=== PATIENT | female | born 1955 | race Caucasian/White ===

== ENCOUNTER 2017-04-05 16:23 | Inpatient (IN) | payer MEDICARE ==
[~2017-04-05] VITALS: Ht 160 cm; Wt 67.0 kg
--- NOTE | ~2017-04-05 | DS ---
Unit #: [id number] #: [id number] Patient: BRANDYN BALBUENA [id number] [address] [address] [id number] I MR#: [id number] NAME: BRANDYN BALBUENA. ROOM: 464 Age: 61 Sex: F Admission Date: 04/05/2017 : 1955 Discharge Date: 04/10/2017 Attending Physician: Marshal Kaiser M.D. Primary Care Physician: Esperanza Angel A.P.R.N. DISCHARGE SUMMARY PRIMARY REASON FOR ADMISSION Acute diverticulitis. HISTORY OF PRESENT ILLNESS The patient is a 61-year-old woman who was admitted to the emergency room after having a four day history of left lower quadrant pain. She had some nausea and no diarrhea and no fevers or chills. She has not had any previous such symptoms. CT scan performed, demonstrates diverticulitis with a small amount of extraluminal air, contained small perforation. PHYSICAL EXAMINATION See admission H and P. HOSPITAL COURSE Patient was admitted and started on IV antibiotics. Over the next several days her pain defervesced. Her white count normalized. She was advanced to a regular diet and was deemed ready for discharge home on 04/10/2017. DISPOSITION To home. CONDITION Good. FOLLOWUP Patient will be followed up in the office in two weeks. Dictated by... Anibal CastilloT/ts TD: 04/11/2017 10:29 JOB #: [id number] Unit #: [id number] #: [id number] Patient: BRANDYN BALBUENA DISCHARGE SUMMARY Page 1 of 1 X Marshal Kaiser DISCHARGE SUMMARY
--- NOTE | ~2017-04-05 | CO ---
Unit #: [id number] #: [id number] Patient: BRANDYN BALBUENA [id number] [address] [place], [place] [address] [id number] I MR#: [id number] NAME: BRANDYN BALBUENA. ROOM: 464 Age: 61 Sex: F Admission Date: 04/05/2017 : 1955 Attending Physician: Marshal Kaiser M.D. Primary Care Physician: Esperanza Angel A.P.R.N. Consultation Date: 04/06/2017 CONSULTATION REPORT BRIEF HISTORY The patient is a 61-year-old lady, who presents with 4-day history of left lower quadrant suprapubic abdominal pain. She has had some nausea. No vomiting. No diarrhea. No change in bowel habits. No bright red blood per rectum. No fevers. No chills. No history of similar type pain. No trauma. PAST MEDICAL HISTORY History of hypotension, diabetes, questionable ovarian cancer, arthritis. PAST SURGICAL HISTORY Complex. She has had a hysterectomy, appendectomy, multiple hernia repairs. MEDICATIONS Please see medication list. SOCIAL HISTORY No smoking. No alcohol. REVIEW OF SYSTEMS No cardiopulmonary complaints at this time. Else, 10 systems reviewed and negative. PHYSICAL EXAMINATION GENERAL: She is awake, alert, in no distress. VITAL SIGNS: Currently, afebrile. Pulse 97, respirations 18, blood pressure 137/63. HEENT: Unremarkable. NECK: Supple. No JVD. Trachea midline. LUNGS: Clear to auscultation. Bilateral breath sounds symmetric. CARDIOVASCULAR: Regular rate and rhythm. ABDOMEN: Soft. It is tender in the left lower quadrant. No rebound. No hernias. EXTREMITIES: No clubbing, cyanosis, or edema. DIAGNOSTIC STUDIES LABORATORY RESULTS: Show normal white count. Creatinine is 2.2. IMAGING STUDIES: CT scan referenced, discussed, extraluminal air but minimal inflammation of the sigmoid colon. ASSESSMENT 1. Likely diverticulitis with extraluminal contained perforation. Unit #: [id number] #: [id number] Patient: BRANDYN BALBUENA 2. Possible involvement of the bladder. PLAN Does not seem to have an acute surgical abdomen at this time. Would recommend IV fluids, bowel rest, antibiotics, and we will reassess. We will obtain scans and review. Dictated by... Anibal Ness/raina TD: 04/06/2017 06:57 JOB #: [id number] CONSULTATION REPORT Page 1 of 1 X Jose Prabhakar MD X CONSULTATION REPORT
--- NOTE | ~2017-04-05 | CO ---
Unit #: [id number] #: [id number] Patient: BRANDYN BALBUENA [id number] [address] [place], [place] [address] [id number] I MR#: [id number] NAME: BRANDYN BALBUENA. ROOM: 464 Age: 61 Sex: F Admission Date: 04/05/2017 : 1955 Attending Physician: Marshal Kaiser M.D. Primary Care Physician: Esperanza Angel A.P.R.N. Requesting Physician: Marshal Kaiser M.D. CONSULTATION REPORT REASON FOR CONSULTATION Patient with known history of chronic kidney disease, followed by my partner, Dr. Teresa York, at [place], [place]. HISTORY OF PRESENTING ILLNESS This patient is a 61-year-old white female with a history of multiple problems including type 2 diabetes, history of hypertension, hyperlipidemia, history of osteoporosis, history of GERD, history of peripheral neuropathy and chronic pain. The patient was admitted due to the left lower quadrant pain for four days associated with diarrhea, nausea and vomiting. The patient seemed to have diverticulitis on the CAT scan and treated with a bowel rest, antibiotic therapy and IV fluids. The patient's baseline creatinine is not known as per patient. She was told she had chronic kidney disease from hypertension and diabetes. She denied any urinary complaints of dysuria, frequency of urination or hesitancy on urination. Has been reporting pain in the left lower quadrant for four days which is associated with diarrhea, cramps, nausea, vomiting, not feeling well. PAST MEDICAL HISTORY As per history of presenting illness. MEDICATIONS Her home medications are multiple includin. Alendronate sodium which she takes for osteoporosis. 2. Calcium carbonate 600 mg tablet daily. 3. Isosorbide mononitrate 30 mg daily. 4. Oxycodone for pain. 5. Fosamax 70 mEq daily. 6. Klonopin 0.5 three times daily. 7. Januvia 100 mg daily. 8. Topamax 100 mg daily. 9. Mirtazapine 30 mg at bedtime. REVIEW OF SYSTEMS As per history of presenting illness. PHYSICAL EXAMINATION GENERAL: The patient is ill looking. VITAL SIGNS: Temperature 97.4, pulse 83, blood pressure 141/67. HEENT: Unremarkable. Dry mucosa. No oral exudate. Mild pallor. NECK: Supple. No JVD or bruits. No thyromegaly, no cervical lymphadenopathy. CHEST: Clear to auscultation bilaterally. Unit #: [id number] #: [id number] Patient: BRANDYN BALBUENA CARDIOVASCULAR: Regular rate and rhythm. No rub, murmur or gallop. ABDOMEN: Soft. Quite tender in the left lower quadrant. No rebound tenderness. Positive bowel sounds. EXTREMITIES: No peripheral edema. DIAGNOSTIC STUDIES LABORATORY DATA: Patient's chemistry - serum sodium 141, potassium 4.6, chloride 112, bicarb 23, BUN 40, creatinine 2.2, glucose 187, calcium 8.5. ASSESSMENT Patient with acute on chronic kidney injury, mild azotemia from intravascular volume depletion. Will change IV fluids to one half normal saline with 1.25 amps of sodium bicarb at 100. Will keep all the oral medications off while she is ill. Will use p.r.n. hydralazine for blood pressure control if needed and continue IV antibiotics. Will check UA, urine lytes, eosinophil and rule out any other secondary causes including drug-induced interstitial nephritis. Thank you very much for the opportunity to share in the care of this patient. I will follow along with you. Dictated by... Rajat Craft M.D. SARABJIT/kym TD: 04/07/2017 05:00 JOB #: [id number] CONSULTATION REPORT Page 1 of 1 X Gael Craft MD X CONSULTATION REPORT
--- NOTE | ~2017-04-05 | CO ---
Unit #: [id number] #: [id number] Patient: BRANDYN DASILVA [id number] [address] [place], [place] [address] [id number] I MR#: [id number] NAME: BRANDYN DASILVA. ROOM: 464 Age: 61 Sex: F Admission Date: 04/05/2017 : 1955 Attending Physician: Marshal Kaiser M.D. Primary Care Physician: Esperanza Angel A.P.R.N. Consultation Date: 04/07/2017 CONSULTATION REPORT REASON FOR CONSULTATION Abnormal CT abdomen with pulmonary, pleural nodules. HISTORY OF PRESENT ILLNESS A 61-year-old female who developed abdominal pain two days prior to admission and was evaluated. CT scan suggested some walled-off free air, possibly from diverticulitis. Surgery is following and is going to re-CT her abdomen. CT scan of the abdomen revealed some nodular densities, some cavitary, some pleural, somewhat larger than previous and we are asked to evaluate the patient. She tells me she has been diagnosed with holes in her lungs in 2013. She stated the doctor said it was related to her steroids. Apparently, she has rheumatoid arthritis and was on methotrexate and steroids for approximately two years. She has been off those medicines for the last two years, stopping them in 2014. She denies any pulmonary complaints such as shortness of breath, wheezing, sputum production, hemoptysis. She denies hematuria. She is up to date with her cancer screening including mammograms. She denies fever, weight loss, night sweats. PAST MEDICAL HISTORY 1. Diabetes. 2. Hypertension. 3. Hyperlipidemia. 4. Osteoporosis. 5. Rheumatoid arthritis. 6. Gastroesophageal reflux. 7. Chronic pain. HOME MEDICATIONS 1. Fosamax. 2. Calcium. 3. Imdur. 4. Oxycodone. 5. Klonopin. 6. Januvia. 7. Topamax. 8. Remeron. ALLERGIES Sulfa, gabapentin. SOCIAL HISTORY She smokes a pack of cigarettes a day. Does not drink. Unit #: [id number] #: [id number] Patient: BRANDYN DASILVA FAMILY HISTORY No familial lung disease. REVIEW OF SYSTEMS She had been prescribed a Symbicort inhaler in the past but only uses it "p.r.n." She denies chest pain, palpitations, focal weakness, paraesthesias. She has noted "bumps and nodules on her forearms." They have been removed before, but she cannot tell the diagnosis. These likely represent rheumatoid nodules. Further review of systems which was extensively covered as in the HPI and/or negative. PHYSICAL EXAMINATION GENERAL: Examination reveals a patient who is in no acute distress on room air. VITAL SIGNS: Afebrile, pulse 81, respiratory rate 16, blood pressure 146/76. Height 5 foot 3 inches, 150 pounds. HEENT: Pupils equal, round, and reactive to light. Sclerae anicteric. Head atraumatic. She is edentulous. Mucous membranes are moist. NECK: Supple. No supraclavicular or cervical adenopathy appreciated. CHEST: Rare scattered rhonchi but no wheeze, stridor, or consolidation. CARDIAC: Reveals a regular rate and rhythm. No pathologic murmur, rub, or gallop. ABDOMEN: Soft, fairly nontender, certainly no rebound. EXTREMITIES: Reveal no clubbing, cyanosis, or edema. No calf tenderness. SKIN: She has a nodular area on her left forearm. She has some fluid apparently in her right elbow. It is nontender and nonerythematous. There is also a nodular area just above her right elbow. There are surgical incisions where you would anticipate rheumatoid nodules to be that had been removed. DIAGNOSTIC STUDIES LABORATORY: BUN 28, creatinine 1.9. CBC is normal. No urinalysis performed. Urine culture is pending. Urine eosinophils are negative. IMAGING: Chest x-ray honestly is fairly unremarkable. CT scan, lower lung cuts: Nodular densities, most of them pleural based, some of them are cavitary, particularly on the right. They were present prior and by history they were present in 2014. CARDIOVASCULAR: I do not see a 12-lead EKG. IMPRESSION 1. Pulmonary nodular densities: I suspect are related to her rheumatoid arthritis. Given the duration of presence, I doubt it represents metastatic disease. Vasculitis, fungal infections, etc. would be much less likely. 2. Tobacco use. 3. Possible underlying chronic obstructive pulmonary disease: She does have some mild hyperinflation on her CAT scan. PLAN 1. Agree with CT scan of the chest. 2. I will check rheumatoid factors, sed rate, REYNA, and ANCA levels. 3. Certainly, no smoking is of great benefit. 4. Urinalysis will be checked for hematuria. 5. I will try to obtain office notes from Dr. Bolaños. 6. She certainly will need to have close followup either with myself or Unit #: [id number] #: [id number] Patient: BRANDYN DASILVA with Dr. Bolaños in [place]. Thank you very much for allowing me to participate in the care of Ms. Dasilva. Dictated by... Tab Ross M.D. SISSY/marlee TD: 04/07/2017 12:17 JOB #: [id number] CC: Esperanza Angel A.P.R.N. CONSULTATION REPORT Page 1 of 1 X Tab Ross MD X CONSULTATION REPORT
--- NOTE | ~2017-04-05 | CT57 ---
[facility] A Service of [facility] & [facility] RADIOLOGY TEXT RESULTS PATIENT: BRANDYN BALBUENA LOCATION: [facility] 46- : 59 UNIT #: [id number] AGE: [address]: Marshal Kaiser SEX: F ORDER DR: [id number] [facility] [address] [facility]. [place], [place] [address] [id number] I MR#: [id number] Acc #: [id number] NAME: BRANDYN BALBUENA : 1955 SEX: F STUDY DATE/TIME: 04/07/2017 18:00 UNIT: [facility] ROOM: 4 STUDY DESCRIPTION: CT Chest Wo Cont Attending Physician: Marshal Kaiser M.D. Ordering Physician: Carl Dodson M.D. Primary Care Physician: Esperanza Angel A.P.R.N. MEDICAL IMAGING REPORT This report is preliminary unless electronic signature is present EXAM CT chest without contrast HISTORY Chest pain for [address] exam was performed with one or more of the following radiation dose reduction techniques: Automatic exposure control, adjustment of mA and/or kV according to patient size, and iterative reconstruction. CT chest without contrast demonstrates multiple subpleural, smoothly marginated bilateral pulmonary nodules in the upper and lower lobes bilaterally, the majority of which are cavitary, with service center representative nodules including measurements of 1 cm in the anterior left upper lobe, 1.2 cm in the medial right lower lobe, and 2.1 cm x 1.3 cm in the posterolateral left lower lobe, and 2 cm in the posterior right lower lobe. The nodules are larger than on 12/04/2015, and several are new. Considerations include infectious or inflammatory etiologies. Metastatic disease is also a consideration. There is moderately extensive bronchiectasis in the left upper lobe and mild bronchiectasis in the right upper lobe and mild bronchiectasis in the posterior left lower lobe. Interstitial fibrotic scarring in the bilateral upper lobes. No airspace consolidation. No pleural effusion. Moderate sized left shoulder effusion, in the glenohumeral joint and subscapular recess, containing air bubbles, which could be secondary to intervention or infection. Correlation to the patient's history and symptoms is recommended. Small hiatal hernia. Bilateral adrenal adenomas, each measuring approximately 1.3 cm, are incidentally noted. IMPRESSION 1. Bilateral pulmonary nodules have increased in size and number as compared to 12/04/2015. These are predominantly subpleural and well STS. [facility] A Service of [facility] RADIOLOGY TEXT RESULTS PATIENT: BRANDYN BALBUENA LOCATION: [place] [address] : 59 UNIT #: [id number] AGE: [address]: Marshal Kaiser SEX: F ORDER DR: marginated and the majority are at least partly cavitary. The largest nodule is in the lateral left lower lobe and measures 2.1 cm x 1.3 cm. Considerations include infectious or inflammatory etiologies or metastatic disease. Either short-term followup CT in [address] should be considered for further evaluation. 2. Bronchiectasis in the bilateral upper lobes, left greater than right, and mild bronchiectasis in the posterior left lower lobe. 3. Left shoulder effusion containing air bubbles. This could be secondary to infection or intervention and correlation to the patient's history and symptoms is recommended. 4. Incidental bilateral adrenal adenomas. 5. Interstitial scarring in the upper lobes, left greater than right. Dictated by... Carrington Moore M.D. THIS IS AN ELECTRONICALLY VERIFIED REPORT Carrington Moore M.D. at 04/08/2017 10:10 PM DFEsperanza/freddy TD: 04/08/2017 00:06 JOB #: [id number] MEDICAL IMAGING REPORT Page 1 of 1 COPY
--- NOTE | ~2017-04-05 | CT4 ---
[facility] A Service of [facility] & [facility] / [facility] RADIOLOGY TEXT RESULTS PATIENT: BRANDYN BALBUENA LOCATION: [facility] 464- : 59 UNIT #: [id number] AGE: [address]: Marshal Kaiser SEX: F ORDER DR: [id number] [facility] [address] [facility]. [place], [place] [address] [id number] I MR#: [id number] Acc #: [id number] NAME: BRANDYN BALBUENA : 1955 SEX: F STUDY DATE/TIME: 04/07/2017 10:11 UNIT: [facility] ROOM: 4 STUDY DESCRIPTION: CT Abd and Pelv Wo Cont Attending Physician: Marshal Kaiser M.D. Ordering Physician: Carl Dodson M.D. Primary Care Physician: Esperanza Angel A.P.R.N. MEDICAL IMAGING REPORT This report is preliminary unless electronic signature is present EXAM CT abdomen and pelvis without contrast HISTORY Low abdomen pain for [address] exam was performed with one or more of the following radiation dose reduction techniques: automatic exposure control, adjustment of mA and/or kV according to patient size, and iterative reconstruction. FINDINGS CT ABDOMEN: Images of the lung bases demonstrate peripheral, partly cavitary pulmonary nodules in the lower lobes, corresponding to similar findings on CT 04/05/2017. Small hiatal hernia. Left adrenal adenoma measures 1.5 cm x 1.4 cm and right adrenal adenoma measures 0.8 cm x 0.9 cm. The liver, gallbladder, spleen, and pancreas are unremarkable. Small nonobstructing stones in both kidneys measure up to 2 mm, with additional incidental renal arterial calcifications bilaterally. There are also incidental left renal cysts measuring up to 3.7 cm. No bowel dilatation. Anterior abdominal wall hernia repair. No recurrent abdominal wall hernia. CT PELVIS: Extraluminal air along the left lateral margin of the urinary bladder has decreased compared to 04/05/2017. No associated fluid collection or inflammatory stranding. No free fluid in the pelvis. Hysterectomy. The urinary bladder is otherwise unremarkable. IMPRESSION 1. Interval decrease in the focal extraluminal air collection along the left inferior margin of the urinary bladder as compared to CT 04/05/2017. No adjacent fluid collection or inflammatory stranding. Etiology is unclear, but considerations include sequelae of prior instrumentation and correlation with the patient's history in this STS. [facility] A Service of [facility] RADIOLOGY TEXT RESULTS PATIENT: BRANDYN BALBUENA LOCATION: [place] [address] : 59 UNIT #: [id number] AGE: [address]: Marshal Kaiser SEX: F ORDER DR: regard is recommended. No new air or fluid collections in the remainder of the abdomen or pelvis. 2. Incidental bilateral adrenal adenomas. 3. Stable subpleural partly cavitary pulmonary nodules in both lung bases further described on CT chest reported separately. Dictated by... Carrington Moore M.D. THIS IS AN ELECTRONICALLY VERIFIED REPORT Carrington Moore M.D. at 04/08/2017 10:09 PM LIAM/miracle TD: 04/07/2017 22:58 JOB #: [id number] MEDICAL IMAGING REPORT Page 1 of 1 COPY
[2017-04-06 03:53] LABS: BASOPHIL# 0.1 X10e3 (0-0.3); BASOPHIL% 1.1 % (0-2.5); EOSINOPHIL# 0.1 X10e3 (0-0.7); EOSINOPHIL% 2.1 % (0.0-7.0); HEMATOCRIT 37.5 % (35.0-45.0); HEMOGLOBIN 12.2 gm/dL (12.0-16.0); LYMPHOCYTE# 1.2 X10e3 (1.0-3.5); LYMPHOCYTE% 22.9 % (17.0-45.0); MEAN CELL VOLUME 89.6 FL (83-96); MEAN CORPUSCULAR HEMOGLOBIN 29.2 PG (28-34); MEAN CORPUSCULAR HGB CONC 32.6 g/dL (30-36); MEAN PLATELET VOLUME 7.3 FL (6.5-11.5); MONOCYTE# 0.4 X10e3 (0-1.0); MONOCYTE% 7.1 % (3.0-12.0); NEUTROPHIL# 3.5 X10e3 (1.5-7.1); NEUTROPHIL% 66.8 % (40-75); PLATELET COUNT 285 X10e3 (140-420); RED BLOOD COUNT 4.19 X10e (3.90-5.30); RED CELL DISTRIBUTION WIDTH 14.6 % (11.0-15.5); WHITE BLOOD COUNT 5.3 X10e3 (4.0-10.5)
[2017-04-06 03:58] LABS: DIFF IND NO
[2017-04-06 04:18] LABS: BUN/CREATININE RATIO 18.18; CALCIUM SERUM 8.5 mg/dL (8.4-10.2); CREATININE SERUM 2.2 mg/dL (0.6-1.4); GLOM FILT RATE Estimated 23.8 mL/min (>60); POTASSIUM 4.6 mmol/L (3.5-5.1)
[2017-04-06] MEDS ORDERED: IMDUR-ER30 M1 DOB (15:53)
[2017-04-06] MEDS ORDERED: PERCOCET10 PO (15:53)
[2017-04-06] MEDS ORDERED: CELEXA20 MG PO (15:54)
[2017-04-06] MEDS ORDERED: NEXIUM40 M1 (15:55)
[2017-04-06] MEDS ORDERED: LIPITOR80 MG (15:55)
[2017-04-06] MEDS ORDERED: KLONOPIN0.5 MG PO (15:56)
[2017-04-06] MEDS ORDERED: FOSAMAX70 MG PO (15:56)
[2017-04-06] MEDS ORDERED: JANUVIA PO (15:56)
[2017-04-06] MEDS ORDERED: MIRTAZAPINE30 M2 PO (15:57)
[2017-04-06] MEDS ORDERED: TOPAMAX50 MG DOB (15:57)
[2017-04-07 00:02] LABS: POTASSIUM,URINE RANDOM 22 mmol/L; SODIUM URINE RANDOM 75 mmol/L; TOTAL PROTEIN,RANDOM URINE 356 mg/dl (<10)
[2017-04-07 03:52] LABS: BASOPHIL# 0.1 X10e3 (0-0.3); BASOPHIL% 0.9 % (0-2.5); EOSINOPHIL# 0.3 X10e3 (0-0.7); EOSINOPHIL% 5.1 % (0.0-7.0); HEMATOCRIT 38.6 % (35.0-45.0); HEMOGLOBIN 12.3 gm/dL (12.0-16.0); LYMPHOCYTE# 2.3 X10e3 (1.0-3.5); LYMPHOCYTE% 35.1 % (17.0-45.0); MEAN CELL VOLUME 90.7 FL (83-96); MEAN CORPUSCULAR HGB CONC 31.9 g/dL (30-36); MEAN PLATELET VOLUME 7.5 FL (6.5-11.5); MONOCYTE# 0.6 X10e3 (0-1.0); MONOCYTE% 9.8 % (3.0-12.0); NEUTROPHIL# 3.2 X10e3 (1.5-7.1); NEUTROPHIL% 49.1 % (40-75); PLATELET COUNT 282 X10e3 (140-420); RED BLOOD COUNT 4.25 X10e (3.90-5.30); RED CELL DISTRIBUTION WIDTH 14.6 % (11.0-15.5); WHITE BLOOD COUNT 6.6 X10e3 (4.0-10.5)
[2017-04-07 03:53] LABS: DIFF IND NO
[2017-04-07 04:10] LABS: BUN/CREATININE RATIO 14.73; CALCIUM SERUM 8.8 mg/dL (8.4-10.2); CREATININE SERUM 1.9 mg/dL (0.6-1.4); GLOM FILT RATE Estimated 28.4 mL/min (>60); MAGNESIUM 1.9 mg/dL (1.6-3.0); POTASSIUM 4.3 mmol/L (3.5-5.1)
[2017-04-07 17:09] LABS: URINE APPEARANCE CLEAR; URINE BILIRUBIN NEG (NEG); URINE BLOOD TRACE (NEG); URINE COLOR YELLOW; URINE GLUCOSE 100 MG/DL (NEG); URINE KETONE NEG (NEG); URINE LEUKOCYTE ESTERASE NEG (NEG); URINE NITRATE NEG (NEG); URINE PROTEIN 3+ (NEG); URINE SPECIFIC GRAVITY 1.009 (1.003-1.035); URINE UROBILINOGEN 0.2 MG/DL (NEG)
[2017-04-07 17:10] LABS: U HYALINE CASTS AUWI 0-2 /[LPF]; URINE BACTERIA AUWI NEG (NEGATIVE); URINE SQUAMOUS EPITHELIAL CELL NONE SEEN /[HPF]; UWBCS1 AUWI 0-2 (0-5)
[2017-04-07 17:42] LABS: CREATININE,RANDOM URINE 30 mg/dL
[2017-04-07 17:43] LABS: TOTAL PROTEIN,RANDOM URINE 203 mg/dl (<10)
[2017-04-08 04:13] LABS: HEMATOCRIT 33.7 % (35.0-45.0); MEAN CORPUSCULAR HEMOGLOBIN 29.1 PG (28-34); MEAN CORPUSCULAR HGB CONC 32.7 g/dL (30-36); MEAN PLATELET VOLUME 7.3 FL (6.5-11.5); RED BLOOD COUNT 3.79 X10e (3.90-5.30); RED CELL DISTRIBUTION WIDTH 14.1 % (11.0-15.5); WHITE BLOOD COUNT 5.6 X10e3 (4.0-10.5)
[2017-04-08 04:36] LABS: BUN/CREATININE RATIO 11.11; CALCIUM SERUM 8.3 mg/dL (8.4-10.2); CREATININE SERUM 1.8 mg/dL (0.6-1.4); GLOM FILT RATE Estimated 30.3 mL/min (>60); MAGNESIUM 1.7 mg/dL (1.6-3.0); PHOSPHOROUS 4.6 mg/dL (2.5-4.6); POTASSIUM 4.2 mmol/L (3.5-5.1)
[2017-04-09 03:39] LABS: HEMATOCRIT 35.9 % (35.0-45.0); HEMOGLOBIN 11.4 gm/dL (12.0-16.0); MEAN CELL VOLUME 89.9 FL (83-96); MEAN CORPUSCULAR HEMOGLOBIN 28.6 PG (28-34); MEAN CORPUSCULAR HGB CONC 31.9 g/dL (30-36); MEAN PLATELET VOLUME 7.4 FL (6.5-11.5); RED BLOOD COUNT 3.99 X10e (3.90-5.30); RED CELL DISTRIBUTION WIDTH 14.6 % (11.0-15.5); WHITE BLOOD COUNT 5.5 X10e3 (4.0-10.5)
[2017-04-09 04:02] LABS: BUN/CREATININE RATIO 9.04; CALCIUM SERUM 8.5 mg/dL (8.4-10.2); CREATININE SERUM 2.1 mg/dL (0.6-1.4); GLOM FILT RATE Estimated 25.1 mL/min (>60); POTASSIUM 4.2 mmol/L (3.5-5.1)
[2017-04-10 03:07] LABS: BASOPHIL# 0.1 X10e3 (0-0.3); BASOPHIL% 1.3 % (0-2.5); EOSINOPHIL# 0.4 X10e3 (0-0.7); EOSINOPHIL% 6.1 % (0.0-7.0); HEMATOCRIT 33.7 % (35.0-45.0); HEMOGLOBIN 11.1 gm/dL (12.0-16.0); LYMPHOCYTE% 31.2 % (17.0-45.0); MEAN CELL VOLUME 88.5 FL (83-96); MEAN CORPUSCULAR HEMOGLOBIN 29.2 PG (28-34); MEAN PLATELET VOLUME 7.3 FL (6.5-11.5); MONOCYTE# 0.6 X10e3 (0-1.0); MONOCYTE% 8.7 % (3.0-12.0); NEUTROPHIL# 3.4 X10e3 (1.5-7.1); NEUTROPHIL% 52.7 % (40-75); PLATELET COUNT 243 X10e3 (140-420); RED BLOOD COUNT 3.81 X10e (3.90-5.30); RED CELL DISTRIBUTION WIDTH 14.8 % (11.0-15.5); WHITE BLOOD COUNT 6.5 X10e3 (4.0-10.5)
[2017-04-10 03:08] LABS: DIFF IND NO
[2017-04-10 03:29] LABS: BUN/CREATININE RATIO 10.9; CALCIUM SERUM 8.5 mg/dL (8.4-10.2); CREATININE SERUM 2.2 mg/dL (0.6-1.4); GLOM FILT RATE Estimated 23.8 mL/min (>60); POTASSIUM 4.6 mmol/L (3.5-5.1)
[2017-04-10] MEDS ORDERED: METAMUCIL SUGA283 GM PO (10:31)
[2017-04-10] MEDS ORDERED: AUGMENTIN PO (10:33)
[2017-04-12 12:59] LABS: COMPLEMENT C3 111 mg/dL (90-180); COMPLEMENT C4 16 mg/dL (16-47)
[2017-04-12 22:53] LABS: ANA SCREEN Negative (Negative); MYELOPEROXIDASE AB (PNL) <1.0 AI (<1.0); PROTEINASE-3 AB (PNL) <1.0 AI (<1.0)
[2017-04-14 20:01] LABS: ASPERGILLUS FLAVUS Negative (Negative); ASPERGILLUS FUMIGATUS Negative (Negative); ASPERGILLUS NIGER Negative (Negative); BLASTOMYCES ANTIBODY Negative (Negative); COCCIDIODES ANTIBODY Negative (Negative); CRYPTOCOCCAL AB <1:2 (()); CRYPTOCOCCAL AG SCREEN SOURCE Serum (()); CRYPTOCOCCAL SCREEN Not Detected (Not Detected); HISTOPLASMA AB Negative (Negative)
[2017-04-16 02:27] LABS: HA AB IGM (HEPPAN) Nonreactive (()); HB CORE AB IGM (HEPPAN) Nonreactive (Nonreactive); HB S AG (HEPPAN) Reactive (Nonreactive); HEP C AB (HEPPAN) Nonreactive (Nonreactive); HEP C AB SIGNAL TO CUTOFF 0.02 ratio (<1.00); SPE A1GLOB (PNL) 0.4 g/dL (0.2-0.3); SPE A2GLOB (PNL) 0.8 g/dL (0.5-0.9); SPE ALB (PNL) 2.7 g/dL (3.8-4.8); SPE BETA 1 GLOBULIN 0.4 g/dL (0.4-0.6); SPE BETA 2 GLOBULIN 0.3 g/dL (0.2-0.5); SPE GAMMA (PNL) 0.8 g/dL (0.8-1.7); SPETP (PNL) 5.3 g/dL (6.1-8.1)
== END 2017-04-10 10:50 | disposition home or self-care (01) | DRG 391 ==
LOC: C4C 20:58 → UNDOADMIN 20:58 → C4C 21:15
PROVIDERS: Internal Medicine; Internal Medicine Nephrology; Specialist; Surgery
DX: K57.80 Diverticulitis of intestine, part unspecified, with perforation and abscess without bleeding (principal); N17.0 Acute kidney failure with tubular necrosis; E78.5 Hyperlipidemia, unspecified; M81.0 Age-related osteoporosis without current pathological fracture; M06.9 Rheumatoid arthritis, unspecified; K21.9 Gastro-esophageal reflux disease without esophagitis; G89.29 Other chronic pain; Z88.2 Allergy status to sulfonamides; F17.210 Nicotine dependence, cigarettes, uncomplicated; J44.9 Chronic obstructive pulmonary disease, unspecified; I12.9 Hypertensive chronic kidney disease with stage 1 through stage 4 chronic kidney disease, or unspecified chronic kidney disease; E11.22 Type 2 diabetes mellitus with diabetic chronic kidney disease; N18.3 Chronic kidney disease, stage 3 (moderate); R80.9 Proteinuria, unspecified; R31.29 Other microscopic hematuria; R91.8 Other nonspecific abnormal finding of lung field
CPT/HCPCS: 71250; 74176; 80048; 80074; 81003; 82436; 82570; 82947; 83735; 84100; 84133; 84156; 84165; 84300; 85025; 85027; 85652; 86021; 86038; 86039; 86160; 86334; 86606; 86612; 86631; 86698; 87086; 89190; J1815; J2270; J2405; J2543